=== PATIENT | female | born 1985 | race Two or more races ===

== ENCOUNTER 2021-10-06 04:37 | Day surgery (SDC) | payer OTHER ==
[2021-10-04 13:24] VITALS: BMI 33.6
[2021-10-06] MEDS ORDERED: BUPIVACAINE HCL/PF 0.5% (5MG/ML) 10 ML VIAL ONE (12:14)
[2021-10-06] MEDS ORDERED: LIDOCAINE HCL 1%, 10 MG/ML (20ML VIAL) ONE ×2 (12:14→12:55)
[2021-10-06] MEDS ORDERED: BENZOIN/ALOE VERA/STORAX/TOLU 58 ML BOTTLE ONE (12:15)
[2021-10-06] MEDS ORDERED: SUCCINYLCHOLINE CHLORIDE 200 MG/10 ML SYRINGE ONE (13:35)
[2021-10-06] MEDS ORDERED: PROPOFOL 20 ML ONE ×2 (13:35)
[2021-10-06] MEDS ORDERED: ceFAZolin SODIUM 1 GM VIAL IVPB ONE (13:49)
[2021-10-06] MEDS ORDERED: BUPIVACAINE HCL/PF 0.5% (5MG/ML) 10 ML VIAL IJ ONE ×3 (13:50→16:04)
[2021-10-06] MEDS ORDERED: LIDOCAINE HCL 1%, 10 MG/ML (20ML VIAL) NR ONE (13:50)
[2021-10-06] MEDS ORDERED: ONDANSETRON 4 MG/2 ML VIAL IVPUSH PRN (16:21)
[2021-10-06] MEDS ORDERED: PROMETHAZINE HCL 25 MG/1 ML VIAL IVPUSH PRN (16:21)
[2021-10-06] MEDS ORDERED: oxyCODONE HCL 5 MG TABLET PO PRN (16:21)
[2021-10-06 18:35] VITALS: TEMP 97.3
[2021-10-06 19:25] VITALS: BP 102/65; PULSE 96
== END 2021-10-06 18:45 | disposition home or self-care (01) ==
LOC: JASU-SURG 04:37
PROVIDERS: ATTEND Podiatrist Foot Surgery
PROC: 0QSN04Z Reposition Right Metatarsal with Internal Fixation Device, Open Approach (ICD-10-PCS; 2021-10-06)
PROC: 0QBN0ZZ Excision of Right Metatarsal, Open Approach (ICD-10-PCS; 2021-10-06)
PROC: 0QSL04Z Reposition Right Tarsal with Internal Fixation Device, Open Approach (ICD-10-PCS; principal; 2021-10-06 13:00)
PROC: 0QUL07Z Supplement Right Tarsal with Autologous Tissue Substitute, Open Approach (ICD-10-PCS; 2021-10-06 13:00)
DX: M20.5X1 Other deformities of toe(s) (acquired), right foot (principal); M21.271 Flexion deformity, right ankle and toes
CPT/HCPCS: 28289; 28305; C1713; 76000-TC-FY; 81025; 88304-TC; 88311-TC; 94760

== ENCOUNTER 2024-03-10 13:38 | Emergency (ER) | payer OTHER ==
[2024-03-10 13:44] VITALS: BP 120/74; PULSE 83; RESP 16; TEMP 98.6; BMI 34.7
[2024-03-10] MEDS ORDERED: IBUPROFEN 400 MG TABLET (FP) PO ONE (16:06)
[2024-03-10] MEDS: IBUPROFEN 400 MG TABLET (FP) PO ONE (16:20)
== END 2024-03-10 16:18 | disposition home or self-care (01) ==
LOC: FER 13:38
DX: M79.604 Pain in right leg (principal); M79.651 Pain in right thigh
CPT/HCPCS: 84703; 93971-TC; 99284-25